=== PATIENT | female | born 1990 | race Two or more races ===

== ENCOUNTER 2018-11-02 15:01 | Emergency (ER) | payer OTHER ==
[~2018-11-02] VITALS: Ht 167.6 cm; Wt 113.4 kg
[2018-11-02] MEDS ORDERED: OSEL75CA PO (19:44)
[2018-11-02] MEDS ORDERED: SYMBICORT 16010.2 GM IH (19:44)
[2018-11-02] MEDS ORDERED: KETO10TA2 PO (19:44)
[2018-11-02] MEDS ORDERED: TESSALON PERLE100 M1 PO (19:44)
== END 2018-11-02 20:08 | disposition home or self-care (01) ==
LOC: ER 15:01
DX: J11.1 Influenza due to unidentified influenza virus with other respiratory manifestations (principal)

== ENCOUNTER 2020-07-26 11:43 | Emergency (ER) | payer OTHER ==
[~2020-07-26] VITALS: Ht 167.6 cm; Wt 117.9 kg
[~2020-07-26 11:43] MED LIST: KETO10TA2 PO; OSEL75CA PO; SYMBICORT 16010.2 GM IH; TESSALON PERLE100 M1 PO
== END 2020-07-26 15:42 | disposition home or self-care (01) ==
LOC: ER 11:43
DX: N94.6 Dysmenorrhea, unspecified (principal); Z03.818 Encounter for observation for suspected exposure to other biological agents ruled out

== ENCOUNTER 2021-11-28 20:31 | Inpatient (IN) | payer OTHER ==
[~2021-11-28] VITALS: Ht 167.6 cm; Wt 113.4 kg
[2021-11-28] MEDS ORDERED: CLONAZEPAM0.5 MG PO (20:44)
== END 2021-11-29 14:14 | disposition home or self-care (01) | DRG 819 ==
LOC: ER 20:31 → OB/GYN 21:09
PROVIDERS: ADMIT Student in an Organized Health Care Education/Training Program; ATTEND Student in an Organized Health Care Education/Training Program
PROC: 0UDB8ZZ Extraction of Endometrium, Via Natural or Artificial Opening Endoscopic (ICD-10-PCS; principal; 2021-11-28)
PROC: 10T24ZZ Resection of Products of Conception, Ectopic, Percutaneous Endoscopic Approach (ICD-10-PCS; 2021-11-28)
PROC: 0UT54ZZ Resection of Right Fallopian Tube, Percutaneous Endoscopic Approach (ICD-10-PCS; 2021-11-28)
DX: O00.101 Right tubal pregnancy without intrauterine pregnancy (principal); Z20.822 Contact with and (suspected) exposure to COVID-19

== ENCOUNTER 2025-01-22 08:52 | Outpatient (CLI) | payer OTHER ==
[~2025-01-22 08:52] MED LIST changes: +CLONAZEPAM0.5 MG PO
== END 2025-01-22 08:54 | disposition home or self-care (01) ==
LOC: TOM 08:52
PROVIDERS: ATTEND Student in an Organized Health Care Education/Training Program
DX: N84.0 Polyp of corpus uteri (principal)